=== PATIENT | female | born 1980 | race Caucasian/White ===

== ENCOUNTER 2018-08-28 17:30 | Emergency (ER) | payer BC, MEDICAID ==
[~2018-08-28] VITALS: Ht 160 cm; Wt 63.6 kg
[~2018-08-28 17:30] MED LIST: ESOM20CA PO; OMEG500C PO; OXYC30TA88 PO; RANI150T44 PO; TRAZ-219 PO
[2018-08-28 17:34] VITALS: BP 131/95
[2018-08-28] MEDS ORDERED: CIPR7.5D OT (18:19)
== END 2018-08-28 18:28 | disposition home or self-care (01) ==
LOC: ER 17:30
DX: H60.93 Unspecified otitis externa, bilateral (principal); K21.9 Gastro-esophageal reflux disease without esophagitis; Z79.899 Other long term (current) drug therapy
CPT/HCPCS: 99283

== ENCOUNTER 2018-08-29 23:28 | Emergency (ER) | payer MEDICAID ==
[~2018-08-29] VITALS: Ht 160 cm; Wt 59.9 kg
[~2018-08-29 23:28] MED LIST changes: +CIPR7.5D OT
--- NOTE | 2018-08-30 03:56 | NUR ---
PT REFUSING TO GIVE URINE SAMPLE.
--- NOTE | 2018-08-30 04:27 | NUR ---
MD AWARE NO URINE, ORDERED SERUM HTC.
[2018-08-30 04:28] LABS: BASOPHILS # (AUTO) 0.1 X10'3 (0-0.2); BASOPHILS % (AUTO) 0.4 % (0-1); EOSINOPHILS # (AUTO) 0.2 X10'3 (0-0.9); EOSINOPHILS % (AUTO) 1.2 % (0-6); HEMATOCRIT 41.7 % (35.0-45.0); HEMOGLOBIN 13.7 g/dl (12.0-16.0); LYMPHOCYTES # (AUTO) 3.4 X10'3 (1.1-4.8); LYMPHOCYTES % (AUTO) 25.7 % (21-51); MEAN CORPUSCULAR HEMOGLOBIN 28.9 PG (27.0-31.0); MEAN CORPUSCULAR HGB CONC 32.7 g/dL (33.0-36.5); MEAN CORPUSCULAR VOLUME 88.3 FL (78-98); MEAN PLATELET VOLUME 8.1 FL (7.4-10.4); MONOCYTES % (AUTO) 7.8 % (2-12); NEUTROPHILS # (AUTO) 8.5 X10'3 (1.8-7.7); NEUTROPHILS % (AUTO) 64.9 % (42-75); PLATELET COUNT 324 X10'3 (140-440); RED BLOOD COUNT 4.73 X10'6 (4.20-5.60); RED CELL DISTRIBUTION WIDTH 13.1 % (11.5-14.5)
[2018-08-30 04:39] LABS: ALANINE AMINOTRANSFERASE 22 U/L (12-78); ALBUMIN 3.2 G/DL (3.4-5.0); ALBUMIN/GLOBULIN RATIO 0.9 (1.1-1.5); ALKALINE PHOSPHATASE 63 IU/L (46-116); ANION GAP 6 (8-16); ASPARTATE AMINO TRANSFERASE 15 U/L (10-37); BILIRUBIN,TOTAL 0.3 MG/DL (0.1-1.0); BLOOD UREA NITROGEN 10 MG/DL (7-18); BUN/CREATININE RATIO 14.3 (6.6-38.0); CALCIUM 8.9 MG/DL (8.5-10.1); CHLORIDE 105 MMOL/L (99-107); GLUCOSE 107 MG/DL (70-104); POTASSIUM 3.2 MMOL/L (3.5-5.1); SODIUM 141 MMOL/L (135-145); TOTAL CARBON DIOXIDE 30.1 MMOL/L (24-32); TOTAL PROTEIN 6.8 G/DL (6.4-8.2); eGFR > 90 ML/MIN
[2018-08-30 04:46] LABS: BETA HCG,QUANTITATIVE < 1.0 mIU/ml; LIPASE 63 U/L (73-393)
[2018-08-30 06:50] LABS: CLARITY,URINE CLEAR (Clear); GLUCOSE, URINE NEGATIVE (Neg); KETONES,URINE NEGATIVE (Neg); LEUKOCYTE ESTERASE ,URINE NEGATIVE (Neg); NITRITES, URINE NEGATIVE (Neg); OCCULT BLOOD,URINE NEGATIVE (Neg); PROTEIN,URINE NEGATIVE (Neg); UROBILINOGEN,URINE 0.2 E.U/dL (0.2-1.0)
[2018-08-30 06:51] LABS: URINE HCG NEGATIVE (NEG)
[2018-08-30 06:52] LABS: COLOR,URINE DARK YELLOW (Yellow); UA COLLECTION TYPE CLN CATCH MIDSTREAM
--- NOTE | 2018-08-30 07:23 | NUR ---
PATIENT REQUESTING MEDICATION FOR HER "PINK EYE",DR. ROMERO MADE AWARE AND WILL ORDER ABT EYE DROP.
[2018-08-30] MEDS ORDERED: gentamicin 0.3% ophthalmic drops 5ML LEFTEYE SCH (07:25)
[2018-08-30 07:28] VITALS: BP 116/89
== END 2018-08-30 07:31 | disposition home or self-care (01) ==
LOC: ER 23:28
DX: R10.31 Right lower quadrant pain (principal); H10.022 Other mucopurulent conjunctivitis, left eye; R30.0 Dysuria; K21.9 Gastro-esophageal reflux disease without esophagitis; F15.90 Other stimulant use, unspecified, uncomplicated; Z79.899 Other long term (current) drug therapy
CPT/HCPCS: 36415; 74176; 80053; 81003; 81025; 83690; 84702; 85025; 99284

== ENCOUNTER 2018-10-04 12:14 | Emergency (ER) | payer MEDICAID ==
[~2018-10-04] VITALS: Ht 160 cm; Wt 61.4 kg
[2018-10-04 12:20] VITALS: BP 142/110
[2018-10-04] MEDS ORDERED: LIDOcaine 1% w/epiNEPHrine 1:200,000 30ml vial IM ONE (13:00)
[2018-10-04] MEDS ORDERED: CEPH-572 PO (13:00)
[2018-10-04] MEDS ORDERED: TETanus/Pertussis (Acell)/Diphther VAC/PF (Tdap-Adult) 0.5ml syringe IM ONE (13:00)
[2018-10-04] MEDS ORDERED: SULF1TAB49 PO (13:00)
== END 2018-10-04 13:58 | disposition home or self-care (01) ==
LOC: ER 12:15
DX: L02.31 Cutaneous abscess of buttock (principal); K21.9 Gastro-esophageal reflux disease without esophagitis; F15.90 Other stimulant use, unspecified, uncomplicated
CPT/HCPCS: 90471; 90715; 99283; J3490

== ENCOUNTER 2019-02-18 14:23 | Emergency (ER) | payer MEDICAID ==
[~2019-02-18] VITALS: Ht 160 cm; Wt 59.0 kg
[~2019-02-18 14:23] MED LIST changes: +RANI-648 PO; -RANI150T44 PO
[2019-02-18] MEDS ORDERED: ketorolac trometh. 30mg/ml inj. IV ONE (14:30)
[2019-02-18] MEDS ORDERED: ondansetron/PF 4mg/2ml inj IV ONE (14:30)
[2019-02-18] MEDS ORDERED: morphine 4 MG/ML inj SYRINge IV PRN (14:30)
[2019-02-18] MEDS ORDERED: normal saline 1000ML IV soln IVB ONE (14:30)
[2019-02-18 15:26] LABS: BASOPHILS # (AUTO) 0.1 X10'3 (0-0.2); BASOPHILS % (AUTO) 0.6 % (0-1); EOSINOPHILS # (AUTO) 0.2 X10'3 (0-0.9); HEMATOCRIT 40.7 % (35.0-45.0); HEMOGLOBIN 13.5 g/dl (12.0-16.0); LYMPHOCYTES # (AUTO) 2.8 X10'3 (1.1-4.8); LYMPHOCYTES % (AUTO) 27.5 % (21-51); MEAN CORPUSCULAR HGB CONC 33.1 g/dL (33.0-36.5); MEAN CORPUSCULAR VOLUME 87.6 FL (78-98); MEAN PLATELET VOLUME 7.9 FL (7.4-10.4); MONOCYTES # (AUTO) 0.7 X10'3 (0-0.9); MONOCYTES % (AUTO) 6.7 % (2-12); NEUTROPHILS # (AUTO) 6.3 X10'3 (1.8-7.7); NEUTROPHILS % (AUTO) 63.2 % (42-75); PLATELET COUNT 365 X10'3 (140-440); RED BLOOD COUNT 4.65 X10'6 (4.20-5.60); RED CELL DISTRIBUTION WIDTH 13.7 % (11.5-14.5)
[2019-02-18 15:48] LABS: ALANINE AMINOTRANSFERASE 15 U/L (12-78); ALBUMIN 3.4 G/DL (3.4-5.0); ALBUMIN/GLOBULIN RATIO 0.9 (1.1-1.5); ALKALINE PHOSPHATASE 73 IU/L (46-116); ANION GAP 5 (8-16); ASPARTATE AMINO TRANSFERASE 14 U/L (10-37); BILIRUBIN,TOTAL 0.5 MG/DL (0.1-1.0); BLOOD UREA NITROGEN 9 MG/DL (7-18); BUN/CREATININE RATIO 11.8 (6.6-38.0); CALCIUM 8.8 MG/DL (8.5-10.1); CHLORIDE 106 MMOL/L (99-107); CREATININE 0.76 MG/DL (0.40-0.90); GLUCOSE 105 MG/DL (70-104); POTASSIUM 3.1 MMOL/L (3.5-5.1); SODIUM 143 MMOL/L (135-145); TOTAL CARBON DIOXIDE 32.3 MMOL/L (24-32); TOTAL PROTEIN 7.2 G/DL (6.4-8.2); eGFR 85 ML/MIN
[2019-02-18 15:49] VITALS: BP 135/84
[2019-02-18 15:49] LABS: URINE HCG NEGATIVE (NEG)
[2019-02-18 15:53] LABS: CLARITY,URINE SLIGHTLY CLOUDY (Clear); COLOR,URINE YELLOW (Yellow); GLUCOSE, URINE NEGATIVE (Neg); KETONES,URINE NEGATIVE (Neg); LEUKOCYTE ESTERASE ,URINE SMALL (Neg); NITRITES, URINE NEGATIVE (Neg); OCCULT BLOOD,URINE NEGATIVE (Neg); PROTEIN,URINE NEGATIVE (Neg)
[2019-02-18 15:55] LABS: UA COLLECTION TYPE CLN CATCH MIDSTREAM
[2019-02-18] MEDS ORDERED: BACDS PO (16:02)
[2019-02-18] MEDS ORDERED: NAPR-56 PO (16:02)
[2019-02-18 16:04] LABS: MUCUS STRANDS MANY /LPF (Neg); SQUAMOUS EPITHELIAL CELL,UR FEW /LPF (FEW); TRANSITIONAL EPI CELLS,URINE FEW /HPF; WBC CLUMPS,URINE FEW /HPF (NEGATIVE)
[2019-02-18 16:06] LABS: BACTERIA,URINE FEW /HPF (Neg); RBC,URINE 0-2 /HPF (0-2); WBC,URINE 50-100 /HPF (0-4)
== END 2019-02-18 16:29 | disposition home or self-care (01) ==
LOC: ER 14:24
DX: N39.0 Urinary tract infection, site not specified (principal); R10.32 Left lower quadrant pain; K21.9 Gastro-esophageal reflux disease without esophagitis; F15.90 Other stimulant use, unspecified, uncomplicated; Z79.899 Other long term (current) drug therapy
CPT/HCPCS: 36415; 76856; 80053; 81001; 81025; 85025; 87088; 96374; 96375; 99284; J1885; J2270; J2405; J7030

== ENCOUNTER 2019-02-25 02:48 | Emergency (ER) | payer MEDICAID ==
[~2019-02-25] VITALS: Ht 160 cm; Wt 54.9 kg
[~2019-02-25 02:48] MED LIST changes: +NAPR-56 PO
[2019-02-25] MEDS ORDERED: azithromycin 250mg tablet PO ONE (03:05)
[2019-02-25] MEDS ORDERED: CefTRIAXone 1000mg IM Kit (w/lidocaine diluent) IM ONE (03:05)
[2019-02-25 03:55] LABS: BASOPHILS % (AUTO) 0.3 % (0-1); EOSINOPHILS # (AUTO) 0.1 X10'3 (0-0.9); EOSINOPHILS % (AUTO) 0.9 % (0-6); HEMATOCRIT 36.3 % (35.0-45.0); HEMOGLOBIN 12.1 g/dl (12.0-16.0); LYMPHOCYTES # (AUTO) 1.9 X10'3 (1.1-4.8); LYMPHOCYTES % (AUTO) 15.8 % (21-51); MEAN CORPUSCULAR HEMOGLOBIN 29.1 PG (27.0-31.0); MEAN CORPUSCULAR HGB CONC 33.4 g/dL (33.0-36.5); MEAN CORPUSCULAR VOLUME 87.1 FL (78-98); MEAN PLATELET VOLUME 7.7 FL (7.4-10.4); MONOCYTES # (AUTO) 0.8 X10'3 (0-0.9); MONOCYTES % (AUTO) 6.2 % (2-12); NEUTROPHILS # (AUTO) 9.4 X10'3 (1.8-7.7); NEUTROPHILS % (AUTO) 76.8 % (42-75); PLATELET COUNT 400 X10'3 (140-440); RED BLOOD COUNT 4.17 X10'6 (4.20-5.60); RED CELL DISTRIBUTION WIDTH 13.3 % (11.5-14.5); WHITE BLOOD COUNT 12.3 X10'3 (4.5-11.0)
[2019-02-25 03:58] LABS: URINE HCG NEGATIVE (NEG)
[2019-02-25 04:02] LABS: CLARITY,URINE CLOUDY (Clear); COLOR,URINE YELLOW (Yellow); GLUCOSE, URINE NEGATIVE (Neg); KETONES,URINE NEGATIVE (Neg); LEUKOCYTE ESTERASE ,URINE NEGATIVE (Neg); NITRITES, URINE NEGATIVE (Neg); OCCULT BLOOD,URINE SMALL (Neg); PROTEIN,URINE NEGATIVE (Neg)
[2019-02-25 04:04] LABS: UA COLLECTION TYPE CLN CATCH MIDSTREAM
--- NOTE | 2019-02-25 04:05 | NUR ---
pt statesto md she has not used meth "in about 2 years" , but upon md leaving bedside pt states" can meth cause this pain " " i also have had three other partners in the bedroom over the last year, i was embrassessed to share that " when questioned about last BM pt could not remember last movment, she stated " it has been over 8 days
[2019-02-25 04:08] LABS: ANION GAP 9 (8-16); CHLORIDE 102 MMOL/L (99-107); GLUCOSE 95 MG/DL (70-104); SODIUM 140 MMOL/L (135-145); TOTAL CARBON DIOXIDE 28.9 MMOL/L (24-32)
[2019-02-25 04:09] LABS: ALANINE AMINOTRANSFERASE 16 U/L (12-78); ALBUMIN 3.1 G/DL (3.4-5.0); ALBUMIN/GLOBULIN RATIO 0.7 (1.1-1.5); ALKALINE PHOSPHATASE 72 IU/L (46-116); ASPARTATE AMINO TRANSFERASE 9 U/L (10-37); BILIRUBIN,TOTAL 0.5 MG/DL (0.1-1.0); BLOOD UREA NITROGEN 10 MG/DL (7-18); BUN/CREATININE RATIO 14.7 (6.6-38.0); CALCIUM 8.4 MG/DL (8.5-10.1); CREATININE 0.68 MG/DL (0.40-0.90); LIPASE < 50 U/L (73-393); TOTAL PROTEIN 7.3 G/DL (6.4-8.2); eGFR > 90 ML/MIN
--- NOTE | 2019-02-25 04:09 | NUR ---
notified dr duffy about pt pain 02/18 . educated pt that further evaluation is needed to r/o appy , will continue to reassess. pt to ct with tech
--- NOTE | 2019-02-25 04:11 | NUR ---
pt back from ct
[2019-02-25 04:12] LABS: URINE AMPHETAMINE SCREEN POSITIVE (Neg); URINE BARBITUATE SCREEN NEGATIVE (Neg); URINE BENZODIAZEPINES SCREEN NEGATIVE (Neg); URINE CANNABINOID SCREEN NEGATIVE (Neg); URINE COCAINE SCREEN NEGATIVE (Neg); URINE METHADONE SCREEN NEGATIVE (Neg); URINE OPIATE SCREEN POSITIVE (Neg); URINE PHENCYCLIDINE SCREEN NEGATIVE (Neg)
--- NOTE | 2019-02-25 04:15 | NUR ---
potassium at 3.[address] Townsend of value
[2019-02-25 04:18] LABS: BACTERIA,URINE FEW /HPF (Neg); SQUAMOUS EPITHELIAL CELL,UR FEW /LPF (FEW); WBC,URINE 0-4 /HPF (0-4)
[2019-02-25 04:19] LABS: CAL OXALATE CRYSTALS 4+ /HPF (NEGATIVE); MUCUS STRANDS FEW /LPF (Neg)
[2019-02-25] MEDS ORDERED: potassium Cl 20 mEq SR tablet PO STA (04:58)
[2019-02-25] MEDS ORDERED: POLY17PO10 PO (04:59)
--- NOTE | 2019-02-25 05:26 | NUR ---
pt given a sack lunch and some prune juice upon discharge
[2019-02-25 05:31] VITALS: BP 115/73
== END 2019-02-25 05:20 | disposition home or self-care (01) ==
LOC: ER 02:49
DX: K59.00 Constipation, unspecified (principal); R10.31 Right lower quadrant pain; R10.32 Left lower quadrant pain; E87.6 Hypokalemia; K21.9 Gastro-esophageal reflux disease without esophagitis; M19.90 Unspecified osteoarthritis, unspecified site; F15.90 Other stimulant use, unspecified, uncomplicated; Z79.899 Other long term (current) drug therapy
CPT/HCPCS: 36415; 74176; 80053; 80305; 81001; 81025; 83690; 85025; 87491; 87591; 96372; 99284; J0696

== ENCOUNTER 2019-03-28 03:08 | Emergency (ER) | payer MEDICAID ==
[~2019-03-28] VITALS: Ht 160 cm; Wt 54.5 kg
[~2019-03-28 03:08] MED LIST changes: -NAPR-56 PO
[2019-03-28 03:16] VITALS: BP 129/82
[2019-03-28] MEDS ORDERED: azithromycin 250mg tablet PO ONE (03:20)
[2019-03-28] MEDS ORDERED: CefTRIAXone 250MG inj IM ONE (03:20)
[2019-03-28] MEDS ORDERED: CefTRIAXone 250MG IM Kit w/LIDOcaine IM ONE (03:30)
== END 2019-03-28 04:18 | disposition home or self-care (01) ==
LOC: ER 03:09
DX: A64 Unspecified sexually transmitted disease (principal); K21.9 Gastro-esophageal reflux disease without esophagitis; M19.90 Unspecified osteoarthritis, unspecified site; F15.90 Other stimulant use, unspecified, uncomplicated; Z79.899 Other long term (current) drug therapy
CPT/HCPCS: 96372; 99283; J0696

== ENCOUNTER 2020-01-19 15:52 | Emergency (ER) | payer MEDICAID ==
[~2020-01-19] VITALS: Ht 160 cm; Wt 66.8 kg
[~2020-01-19 15:52] MED LIST changes: +OXYC30TA PO; -OXYC30TA88 PO; -TRAZ-219 PO; +TRAZ-256 PO
[2020-01-19 16:07] VITALS: BP 155/98
[2020-01-19] MEDS ORDERED: azithromycin 250mg tablet PO ONE (16:40)
[2020-01-19] MEDS ORDERED: CefTRIAXone 250MG IM Kit w/LIDOcaine IM ONE (16:40)
[2020-01-19 17:08] LABS: CLARITY,URINE CLOUDY (Clear); COLOR,URINE YELLOW (Yellow); GLUCOSE, URINE NEGATIVE (Neg); KETONES,URINE NEGATIVE (Neg); LEUKOCYTE ESTERASE ,URINE SMALL (Neg); NITRITES, URINE NEGATIVE (Neg); OCCULT BLOOD,URINE NEGATIVE (Neg); PROTEIN,URINE NEGATIVE (Neg); UROBILINOGEN,URINE >=8.0 E.U/dL (0.2-1.0)
[2020-01-19 17:14] LABS: UA COLLECTION TYPE VOIDED
[2020-01-19 17:15] LABS: MUCUS STRANDS MANY /LPF (Neg); SQUAMOUS EPITHELIAL CELL,UR MANY /LPF (FEW)
[2020-01-19 17:18] LABS: BACTERIA,URINE 4+ /HPF (Neg); RBC,URINE 0-2 /HPF (0-2); TRANSITIONAL EPI CELLS,URINE FEW /HPF; WBC,URINE 0-4 /HPF (0-4)
== END 2020-01-19 17:19 | disposition home or self-care (01) ==
LOC: ER 15:53
DX: N89.8 Other specified noninflammatory disorders of vagina (principal); Z20.2 Contact with and (suspected) exposure to infections with a predominantly sexual mode of transmission; K21.9 Gastro-esophageal reflux disease without esophagitis; M19.90 Unspecified osteoarthritis, unspecified site; F15.90 Other stimulant use, unspecified, uncomplicated; Z79.899 Other long term (current) drug therapy
CPT/HCPCS: 36415; 81001; 87491; 87591; 96372; 99283; J0696

== ENCOUNTER 2020-10-15 23:49 | Emergency (ER) | payer MEDICAID ==
[~2020-10-15] VITALS: Ht 160 cm; Wt 63.6 kg
[2020-10-16] MEDS ORDERED: DOXYCYCLINE 100MG CAPSULE PO ONE (00:05)
[2020-10-16] MEDS ORDERED: CefTRIAXone 1000mg IM Kit (w/lidocaine diluent) IM STA (00:05)
[2020-10-16] MEDS ORDERED: DOXY100C43 PO (00:11)
[2020-10-16] MEDS ORDERED: fluconazole 150mg tablet PO ONE (00:30)
[2020-10-16 00:36] LABS: URINE HCG NEGATIVE (NEG)
[2020-10-16 01:07] VITALS: BP 145/82
== END 2020-10-16 01:05 | disposition home or self-care (01) ==
LOC: ER 23:50
DX: Z11.3 Encounter for screening for infections with a predominantly sexual mode of transmission (principal); K21.9 Gastro-esophageal reflux disease without esophagitis; M19.90 Unspecified osteoarthritis, unspecified site; F15.90 Other stimulant use, unspecified, uncomplicated; Z87.440 Personal history of urinary (tract) infections; Z79.2 Long term (current) use of antibiotics; Z79.899 Other long term (current) drug therapy
CPT/HCPCS: 36415; 81025; 87491; 87591; 96372; 99283; J0696

== ENCOUNTER 2021-08-22 18:19 | Emergency (ER) | payer MEDICAID ==
[~2021-08-22] VITALS: Ht 160 cm; Wt 65.0 kg
[2021-08-22] MEDS ORDERED: CefTRIAXone 1000mg IM Kit (w/lidocaine diluent) IM STA (18:43)
[2021-08-22] MEDS ORDERED: azithromycin 250mg tablet PO ONE (18:45)
[2021-08-22 18:57] VITALS: BP 161/111
[2021-08-22 19:35] LABS: URINE HCG NEGATIVE (NEG)
== END 2021-08-22 20:54 | disposition home or self-care (01) ==
LOC: ER 18:20
DX: A64 Unspecified sexually transmitted disease (principal); R30.9 Painful micturition, unspecified; K21.9 Gastro-esophageal reflux disease without esophagitis; M19.90 Unspecified osteoarthritis, unspecified site; F15.90 Other stimulant use, unspecified, uncomplicated; Z87.440 Personal history of urinary (tract) infections; Z79.2 Long term (current) use of antibiotics; Z79.899 Other long term (current) drug therapy
CPT/HCPCS: 36415; 81025; 87491; 87591; 96372; 99283; J0696

== ENCOUNTER 2022-01-08 16:09 | Emergency (ER) | payer MEDICAID ==
[~2022-01-08] VITALS: Ht 160 cm; Wt 64.5 kg
[2022-01-08 16:22] VITALS: BP 176/106
[2022-01-08] MEDS ORDERED: CefTRIAXone 1000mg IM Kit (w/lidocaine diluent) IM STA (16:24)
[2022-01-08] MEDS ORDERED: PENICILLIN G BENZATHINE 2,400,000 UNIT/4 ML SYRINGE IM STA (16:24)
[2022-01-08] MEDS ORDERED: metroNIDAZOLE 500mg tablet PO ONE (16:25)
[2022-01-08] MEDS ORDERED: azithromycin 250mg tablet PO ONE (16:25)
== END 2022-01-08 18:04 | disposition home or self-care (01) ==
LOC: ER 16:09
DX: R30.0 Dysuria (principal); K21.9 Gastro-esophageal reflux disease without esophagitis; M19.90 Unspecified osteoarthritis, unspecified site; Z87.19 Personal history of other diseases of the digestive system; Z87.440 Personal history of urinary (tract) infections; Z87.410 Personal history of cervical dysplasia; F17.200 Nicotine dependence, unspecified, uncomplicated; F15.90 Other stimulant use, unspecified, uncomplicated; Z79.2 Long term (current) use of antibiotics; Z79.899 Other long term (current) drug therapy
CPT/HCPCS: 36415; 86592; 87491; 87591; 96372; 99284; J0561; J0696

== ENCOUNTER 2023-05-02 05:06 | Emergency (ER) | payer MEDICAID ==
[~2023-05-02] VITALS: Ht 160 cm; Wt 72.0 kg
[2023-05-02 06:02] LABS: BASOPHILS # (AUTO) 0.1 X10'3 (0-0.2); EOSINOPHILS # (AUTO) 0.2 X10'3 (0-0.9); EOSINOPHILS % (AUTO) 2.4 % (0-6); HEMATOCRIT 40.1 % (35.0-45.0); HEMOGLOBIN 13.6 g/dl (12.0-16.0); LYMPHOCYTES # (AUTO) 2.3 X10'3 (1.1-4.8); LYMPHOCYTES % (AUTO) 35.8 % (21-51); MEAN CORPUSCULAR HEMOGLOBIN 29.4 PG (27.0-31.0); MEAN CORPUSCULAR VOLUME 86.6 FL (78-98); MEAN PLATELET VOLUME 7.6 FL (7.4-10.4); MONOCYTES # (AUTO) 0.4 X10'3 (0-0.9); NEUTROPHILS # (AUTO) 3.5 X10'3 (1.8-7.7); NEUTROPHILS % (AUTO) 53.8 % (42-75); PLATELET COUNT 237 X10'3 (140-440); RED BLOOD COUNT 4.63 X10'6 (4.20-5.60); RED CELL DISTRIBUTION WIDTH 13.1 % (11.5-14.5); WHITE BLOOD COUNT 6.5 X10'3 (4.5-11.0)
[2023-05-02] MEDS ORDERED: normal saline 1000ml 1,000 ML IV ONE (06:15)
[2023-05-02] MEDS ORDERED: ketorolac trometh. 30mg/ml inj. IV ONE (06:15)
[2023-05-02 06:16] LABS: ALANINE AMINOTRANSFERASE 21 U/L (12-78); ALBUMIN 3.4 G/DL (3.4-5.0); ALBUMIN/GLOBULIN RATIO 0.9 (1.1-1.5); ALKALINE PHOSPHATASE 69 IU/L (46-116); ANION GAP 4 (8-16); ASPARTATE AMINO TRANSFERASE 17 U/L (10-37); BILIRUBIN,TOTAL 0.9 MG/DL (0.1-1.0); BLOOD UREA NITROGEN 17 MG/DL (7-18); BUN/CREATININE RATIO 22.1 (10.0-20.0); CALCIUM 8.5 MG/DL (8.5-10.1); CHLORIDE 103 MMOL/L (99-107); CREATININE 0.77 MG/DL (0.40-0.90); GLUCOSE 112 MG/DL (70-104); LIPASE 21 U/L (16-77); POTASSIUM 3.1 MMOL/L (3.5-5.1); SODIUM 137 MMOL/L (135-145); TOTAL CARBON DIOXIDE 29.7 MMOL/L (24-32); TOTAL PROTEIN 7.2 G/DL (6.4-8.2); eCRCL 77 ML/MIN; eGFR 81 ML/MIN
[2023-05-02 06:30] LABS: URINE HCG NEGATIVE (NEG)
[2023-05-02 06:38] LABS: BILIRUBIN,URINE NEGATIVE (Neg); CLARITY,URINE CLEAR (Clear); COLOR,URINE STRAW (Yellow); GLUCOSE, URINE NEGATIVE (Neg); KETONES,URINE NEGATIVE (Neg); LEUKOCYTE ESTERASE ,URINE NEGATIVE (Neg); NITRITES, URINE NEGATIVE (Neg); OCCULT BLOOD,URINE LARGE (Neg); PROTEIN,URINE NEGATIVE (Neg); UROBILINOGEN,URINE 0.2 E.U/dL (0.2-1.0)
[2023-05-02 06:42] LABS: UA COLLECTION TYPE NON-SPECIFIED
[2023-05-02 06:48] LABS: RBC,URINE 50-100 /HPF (0-2)
[2023-05-02 06:49] LABS: SQUAMOUS EPITHELIAL CELL,UR MODERATE /LPF (FEW)
[2023-05-02 06:52] LABS: BACTERIA,URINE FEW /HPF (Neg); MUCUS STRANDS NONE SEEN /LPF (Neg)
[2023-05-02] MEDS ORDERED: ondansetron/PF 4mg/2ml inj IV ONE (07:05)
[2023-05-02] MEDS ORDERED: morphine 4 MG/ML inj SYRINge IV ONE (07:05)
[2023-05-02] MEDS ORDERED: potassium Cl 20 mEq SR tablet PO STA (08:27)
[2023-05-02] MEDS ORDERED: HYDR-3965 PO ×2 (08:33→08:46)
[2023-05-02] MEDS ORDERED: IBUP-1986 PO ×2 (08:33)
[2023-05-02] MEDS ORDERED: FLO0.4C PO ×2 (08:33→08:46)
[2023-05-02] MEDS ORDERED: IBUP-1984 PO (08:46)
[2023-05-02 08:58] VITALS: BP 156/99; PULSE 62; RESP 16; TEMP 98; O2SAT 99
== END 2023-05-02 09:01 | disposition home or self-care (01) ==
LOC: ER 05:06
DX: N20.0 Calculus of kidney (principal); K21.9 Gastro-esophageal reflux disease without esophagitis; Z79.899 Other long term (current) drug therapy; Z79.1 Long term (current) use of non-steroidal anti-inflammatories (NSAID); Z79.2 Long term (current) use of antibiotics
CPT/HCPCS: 36415; 74176; 80053; 81001; 81025; 83690; 85025; 87088; 96374; 96375; 99285; J1885; J2270; J2405; J7030

== ENCOUNTER 2023-09-06 16:45 | Emergency (ER) | payer MEDICAID ==
[~2023-09-06] VITALS: Ht 160 cm; Wt 76.4 kg
[2023-09-06 16:53] VITALS: BP 167/111; PULSE 88; RESP 19; O2SAT 100
[2023-09-06] MEDS ORDERED: NAPR-56 PO (16:57)
[2023-09-06] MEDS ORDERED: DOXY-224 PO (16:57)
[2023-09-06 17:15] VITALS: TEMP 98
[2023-09-06] MEDS: ketorolac tromethamine 15mg/ml inj. IM ONE (17:15)
== END 2023-09-06 17:17 | disposition home or self-care (01) ==
LOC: ER 16:46
DX: K04.7 Periapical abscess without sinus (principal); K21.9 Gastro-esophageal reflux disease without esophagitis; M19.90 Unspecified osteoarthritis, unspecified site; E11.9 Type 2 diabetes mellitus without complications; F15.90 Other stimulant use, unspecified, uncomplicated; Z79.899 Other long term (current) drug therapy; Z79.2 Long term (current) use of antibiotics
CPT/HCPCS: 99283

== ENCOUNTER 2023-09-19 01:54 | Emergency (ER) | payer MEDICAID ==
[~2023-09-19] VITALS: Ht 160 cm; Wt 80.9 kg
[~2023-09-19 01:54] MED LIST changes: +NAPR-56 PO
[2023-09-19 02:03] VITALS: BP 168/109; PULSE 92; RESP 16; TEMP 98; O2SAT 97
== END 2023-09-19 03:45 | disposition left against medical advice (07) ==
LOC: ER 01:54
DX: L02.91 Cutaneous abscess, unspecified (principal); Z53.21 Procedure and treatment not carried out due to patient leaving prior to being seen by health care provider
CPT/HCPCS: 99281

== ENCOUNTER 2023-12-16 23:23 | Emergency (ER) | payer OTHER, MEDICAID ==
[~2023-12-16] VITALS: Ht 160 cm; Wt 75.0 kg
[~2023-12-16 23:23] MED LIST changes: -NAPR-56 PO
[2023-12-17] MEDS ORDERED: CYCL-1 PO (01:50)
[2023-12-17] MEDS: naproxen 500mg tablet PO ONE (02:09)
[2023-12-17] MEDS: cyclobenzaprine 10mg tablet PO ONE (02:09)
[2023-12-17 02:10] VITALS: BP 123/69; PULSE 71; RESP 16; TEMP 98.6; O2SAT 97
== END 2023-12-17 02:11 | disposition home or self-care (01) ==
LOC: ER 23:23
DX: M62.830 Muscle spasm of back (principal); K21.9 Gastro-esophageal reflux disease without esophagitis; M19.90 Unspecified osteoarthritis, unspecified site; Z85.41 Personal history of malignant neoplasm of cervix uteri; E11.9 Type 2 diabetes mellitus without complications; F17.210 Nicotine dependence, cigarettes, uncomplicated; F15.90 Other stimulant use, unspecified, uncomplicated; Z79.2 Long term (current) use of antibiotics; Z79.899 Other long term (current) drug therapy; V49.9XXA Car occupant (driver) (passenger) injured in unspecified traffic accident, initial encounter; Y93.89 Activity, other specified; Y92.89 Other specified places as the place of occurrence of the external cause; Y99.8 Other external cause status
CPT/HCPCS: 72070; 72100; 99284

== ENCOUNTER 2025-03-30 22:56 | Emergency (ER) | payer MEDICAID ==
[~2025-03-30] VITALS: Ht 160 cm; Wt 77.2 kg
[~2025-03-30 22:56] MED LIST changes: +CYCL-1 PO
[2025-03-30 23:24] LABS: MEAN PLATELET VOLUME 8.8 FL (7.4-10.4); RED CELL DISTRIBUTION WIDTH 13.6 % (11.5-14.5)
[2025-03-30 23:33] LABS: CREATININE 0.64 MG/DL (0.40-0.90); TOTAL CARBON DIOXIDE 26.7 MMOL/L (24-32); eCRCL 92 ML/MIN; eGFR > 90 ML/MIN
[2025-03-31] MEDS: ketorolac trometh 30MG/ML vial 30 MG/ML VIAL IV ONE (00:20)
[2025-03-31] MEDS: CefTRIAXone/D5W-Rocephin 1gm 50 ML IV ONE (00:21)
[2025-03-31] MEDS: normal saline 1000ml 1,000 ML IV ONE (00:30)
[2025-03-31 02:53] LABS: URINE HCG NEGATIVE (NEG)
[2025-03-31 03:48] LABS: LEUKOCYTE ESTERASE ,URINE SMALL (Neg); NITRITES, URINE NEGATIVE (Neg); OCCULT BLOOD,URINE SMALL (Neg)
[2025-03-31 03:49] LABS: UA COLLECTION TYPE CLN CATCH MIDSTREAM
[2025-03-31 04:02] LABS: SQUAMOUS EPITHELIAL CELL,UR NONE SEEN /LPF (FEW)
--- NOTE | 2025-03-31 04:20 | Physician Documentation ---
History of Present Illness Chief Complaint: Flank Pain Stated Complaint: KIDNEY PAIN A ALS Time Seen by MD: 23:47 Primary Medical Doctor: stephanie COHEN 44 year old female describes flank pain that started shortly [employer], R > L. Reports body aches but no nausea or diarrhea. She has a history of kidney stones and this that this may represent that or a UTI. Medication Reconciliation Allergies: Coded Allergies: No Known Allergies (Unverified , 09/19/23) Scheduled Ciprofloxacin HCl/Dexameth (Ciprodex Otic Suspension), 2 DROP OT Q6H Cyclobenzaprine* (Cyclobenzaprine*), 1 TAB PO HS Esomeprazole Magnesium (Nexium), 1 CAP PO BID, (Reported) [place]-3 Fatty Acids (Fish Oil), 500 MG PO BID Oxycodone Hcl (Oxycodone Hcl), 1 TABLET PO Q6H, (Reported) Ranitidine HCl (Zantac), 1 TABLET PO BID Trazodone HCl (Trazodone HCl), 2 TABLET PO HS, (Reported) Past Medical History Past Medical History: Gastritis, GERD, UTI, *MUSCULOSKELETAL*, Arthritis, Cervical Cancer/Dysplasia Past Surgical History: noncontributory Patient History: (DM Type 2) Diabetes mellitus type 2 MOTHER, Onset:Unknown Smoking Status: Current every day smoker Alcohol Use: Rarely Drug Use: methamphetamine Lives with: Family Lives In: Home Occupation: employed Review of Systems All Other Systems at this time: Reviewed and Negative Physical Exam Vital Signs: RN Vital Signs have been reviewed: Yes, Temperature: 98.6, Source: Temporal, Heart Rate: 69, Respiratory Rate: 16, BP: 128/74, Pulse Oximetry: 97, Weight: 77.200 Oxygen Flow Rate: 0 Progress Results/Orders Results/Orders Orders - KYE LOPEZ MD Ultrasound Of Abdomen (03/31/25 04:01) Cult Urine + [address] (03/31/25 04:02) Completed Orders - KYE LOPEZ MD Hcg, Ur Ql (03/30/25 22:59) Cbc/Diff (03/30/25 22:59) BMP (03/30/25 22:59) Lipase (03/30/25 22:59) CMP (03/30/25 22:59) Normal Saline 1000ml (0.9% Sodium Chlori (03/31/25 00:10) Ketorolac Trometh 30mg/Ml Vial (Toradol (03/31/25 00:10) Ceftriaxone/I1e-Zzcllupn 1gm (Rocephin 1 (03/31/25 00:10) Ua W/Microscopic, Cult If Ind (03/31/25 02:30) Medications Received in ER Medications (Trade) Dose Ordered Sig/[place] Route PRN Reason Start Time Stop Time Status Last Admin Dose Admin Sodium Chloride 1,000 ml @ 1,000 mls/hr ONCE ONCE IV 03/31/25 00:10 03/31/25 01:09 DC 03/31/25 00:30 1,000 MLS/HR Ceftriaxone Sodium 50 ml @ 100 mls/hr ONCE ONCE IV 03/31/25 00:10 03/31/25 00:39 DC 03/31/25 00:21 100 MLS/HR Vital Signs 03/30/25 03/31/25 03/31/25 03/31/25 23:09 00:10 02:05 04:01 Temp 97.8 98.6 98.6 Pulse 110 78 72 69 Resp 16 16 16 16 B/P (MAP) 137/93 133/78 (96) 128/72 (90) 128/74 (92) Pulse Ox 98 97 97 97 O2 Flow Rate 0 Laboratory Tests Test 03/30/25 23:05 03/31/25 02:30 White Blood Count 17.3 H Red Blood Count 4.16 L Hemoglobin 12.6 Hematocrit 36.2 Mean Corpuscular Volume 87.1 Mean Corpuscular Hemoglobin 30.2 Mean Corpuscular Hemoglobin Concent 34.7 Red Cell Distribution Width 13.6 Platelet Count 150 Mean Platelet Volume 8.8 Neutrophils (%) (Auto) 82.3 H Lymphocytes (%) (Auto) 7.8 L Monocytes (%) (Auto) 9.6 Eosinophils (%) (Auto) 0.1 Basophils (%) (Auto) 0.2 Neutrophils # (Auto) 14.3 H Lymphocytes # (Auto) 1.3 Monocytes # (Auto) 1.7 H Eosinophils # (Auto) 0.0 Basophils # (Auto) 0.0 CBC Comment Sodium Level 132 L Potassium Level 3.6 Chloride Level 101 Carbon Dioxide Level 26.7 Anion Gap 4 L Blood Urea Nitrogen 9 Creatinine 0.64 Estimated GFR/1.73 m2 > 90 BUN/Creatinine Ratio 14.1 Glucose Level 125 H Calcium Level 7.4 L Total Bilirubin 1.3 H Aspartate Amino Transf (AST/SGOT) 32 Alanine Aminotransferase (ALT/SGPT) 37 Alkaline Phosphatase 81 Total Protein 6.8 Albumin 2.6 L Globulin 4.2 Albumin/Globulin Ratio 0.6 L Lipase 8 L Chemistry Comments Urine Specimen Description Cln catch midstream Urine Color Yellow Urine Clarity Slightly cloudy Urine pH 6.0 Urine Specific [place] 1.025 Urine Protein 100 H Urine Glucose (UA) 250 H Urine Ketones 15 H Urine Occult Blood Small Urine Nitrite Negative Urine Bilirubin Negative Urine Urobilinogen 1.0 Urine Leukocyte Esterase Small H Urine RBC None seen Urine WBC 5-10 H Urine Squamous Epithelial Cells None seen Urine Bacteria 4+ Urine Culture Indicated Indicated Volume Urine Centrifuged 10 ml Urine HCG, Qualitative Negative Urine Comment Medical Decision Making Additional information obtaine: N/A Findings 44 year old female with R flank pain > L. Workup was largely unremarkable other than for mild elevation in bilirubin. Elected to perform US RUQ for gallbladder pathology and will sign patient out to oncoming ER physician for disposition. Differential Dx:Considerations: Other Additional Comments Ddx = pyelonephritis, UTI, cholecystitis, biliary colic, viral syndrome Departure Disposition: 30 STILL A PATIENT Impression: Primary Impression: Flank pain Condition: Stable Discharge Instructions: Flank Pain, Adult Referrals: NO PRIMARY CARE PROVIDER (PCP) Education Educated: Patient Educated regarding: diagnosis, treatment, prognosis, need for follow up Signature Scribe Signature: . Attestation: KYE SYLVESTER MD Mar 31, 2025 04:20
[2025-03-31 04:57] LABS: BANDS% (MANUAL) 4.0 % (0-10); LYMPHOCYTES % (MANUAL) 5.0 % (21-51); MONOCYTES % (MANUAL) 10.0 % (2-12); NEUTROPHILS % (MANUAL) 81.0 % (42-75); PLATELET ESTIMATE NORMAL
--- NOTE | 2025-03-31 05:35 | RADIOLOGY REPORT ---
INDICATION: RUQ pain, elevated tbili TECHNIQUE: Multiple real-time sonographic images of the abdomen were obtained. COMPARISON: CT CT ABDOMEN PELVIS on DOS: 05/02/23. FINDINGS: The liver is homogenous in echogenicity. The liver measures 16.4 cm. No intrahepatic biliary ductal dilatation is noted. The gallbladder wall measures 0.1 cm and is unremarkable. There is sludge. No calcified gallstones. The common duct measures 0.4 cm and is unremarkable. No pericholecystic fluid is noted. Negative sonographic starr's sign. The right kidney measures 12.3 cm. No hydronephrosis. The pancreas is not well visualized due to obscuration from bowel gas. The visualized portions of the IVC and aorta are grossly unremarkable. IMPRESSION: 1. Gallbladder sludge. 2. No acute process.
[2025-03-31 05:51] VITALS: BP 132/72; PULSE 88; RESP 18; TEMP 98.6; O2SAT 99
== END 2025-03-31 05:52 | disposition home or self-care (01) ==
LOC: ER 22:57
DX: R10.9 Unspecified abdominal pain (principal); E11.9 Type 2 diabetes mellitus without complications; M19.90 Unspecified osteoarthritis, unspecified site; F17.200 Nicotine dependence, unspecified, uncomplicated; K21.9 Gastro-esophageal reflux disease without esophagitis; F15.90 Other stimulant use, unspecified, uncomplicated; Z79.899 Other long term (current) drug therapy; Z87.19 Personal history of other diseases of the digestive system; Z85.41 Personal history of malignant neoplasm of cervix uteri
CPT/HCPCS: 36415; 76700; 80053; 81001; 81025; 83690; 85007; 85025; 87077; 87088; 87186; 96361; 96365; 99285; J0696; J7030